=== PATIENT | male | born 1950 | race African-American/Black ===

== ENCOUNTER 2016-03-11 02:50 | Emergency (ER) | payer MEDICARE ==
[~2016-03-11] VITALS: Ht 172.7 cm; Wt 99.8 kg
[2016-03-11 02:56] VITALS: BP 160/107
== END 2016-03-11 05:29 | disposition left against medical advice (07) ==
LOC: ER 03:00
DX: M25.511 Pain in right shoulder (principal); Z53.21 Procedure and treatment not carried out due to patient leaving prior to being seen by health care provider
CPT/HCPCS: 72125; 93005

== ENCOUNTER 2023-05-16 12:27 | Inpatient (IN) | payer MEDICARE ==
[2023-05-16] VITALS (14 sets, daily range): BP systolic 104–119; BP diastolic 62–72; PULSE 80–96; RESP 16–25; TEMP 97.3–98.3; O2SAT 94–100
[~2023-05-16] VITALS: Ht 172.7 cm
[2023-05-16 13:56] LABS: Basophils # (auto) 0 10 ^3/uL (0-0.2); Eosinophils # (auto) 0.1 10 ^3/uL (0-0.8); Mean Corpuscular Volume 62.7 fL (80.0-100.0); Monocytes # (auto) 0.3 10 ^3/uL (0-1.3); Neutrophils # (auto) 2.9 10 ^3/uL (1.6-8.6)
[2023-05-16 13:58] LABS: Basophils % (auto) 0.9 % (0.0-2.0); Eosinophils % (auto) 1.1 % (0.0-7.0); Hematocrit 21.3 % (41.0-53.0); Lymphocytes # (auto) 1.5 10 ^3/uL (0.4-5.4); Lymphocytes % (auto) 31.1 % (10.0-50.0); Mean Corpuscular Hemoglobin 15.5 pg (28.0-32.0); Mean Corpuscular Hgb Conc. 24.7 g/dL (32.0-36.0); Monocytes % (auto) 6.7 % (0.0-12.0); Neutrophils % (auto) 60.2 % (37.0-80.0); Nucleated Red Blood Cells % 0.4 %; White Blood Cell 4.8 10^3/uL (4.4-10.8)
[2023-05-16 14:01] LABS: Red Cell Distribution Width 22.9 % (11.8-14.3)
[2023-05-16 14:03] LABS: Hemoglobin 5.3 g/dL (13.5-17.5)
[2023-05-16 14:04] LABS: Alanine Aminotransferase 15 U/L (7-40); Albumin 4.2 g/dL (3.2-4.8); Alkaline Phosphatase 85 U/L (46-116); Anion Gap 7 (5-15); Aspartate Aminotransferase 23 U/L (13-40); BUN/Creatinine Ratio 19.8 (10.0-20.0); Bilirubin, Direct 0.1 mg/dL (<0.3); Bilirubin, Total 0.3 mg/dL (0.2-1.0); Blood Urea Nitrogen 19 mg/dL (9-23); Calcium 8.9 mg/dL (8.5-10.1); Carbon Dioxide 25 mmol/L (20-30); Chloride 109 mmol/L (98-107); Glucose 87 mg/dL (74-106); Potassium 3.9 mmol/L (3.5-5.1); Sodium 141 mmol/L (136-145); Total Protein 7.2 g/dL (5.7-8.2)
[2023-05-16 14:54] LABS: % Iron Saturation 3.4 % (20-55)
[2023-05-16] MEDS ORDERED: NITROGLYCERIN 0.4 MG SL TAB SL PRN (15:45)
[2023-05-16] MEDS ORDERED: MORPHINE SULFATE INJ 2 MG/ml SYRG IV PRN (15:45)
[2023-05-16] MEDS ORDERED: DOCUSATE SOD 100 MG CAP PO PRN (15:45)
[2023-05-16] MEDS ORDERED: ONDANSETRON HCL 4 MG/2 ML VIAL IV PRN (15:45)
[2023-05-16] MEDS ORDERED: TAMS0.4C36 PO (15:57)
[2023-05-16] MEDS ORDERED: ASPI1TAB19 PO (15:57)
[2023-05-16] MEDS ORDERED: METO-289 PO (15:57)
[2023-05-16] MEDS ORDERED: LOVA20TA4 PO (15:57)
[2023-05-16] MEDS ORDERED: FLUT1AER3 INH (15:57)
[2023-05-16 16:07] LABS: Ovalocytes FEW; Platelet Estimate Increased
[2023-05-16 16:08] LABS: Anisocytosis Moderate; Hypochromia Marked; Tear Drop Cells FEW
[2023-05-16] MEDS: PRAVASTATIN SODIUM 20 MG TAB PO SCH (22:10)
[2023-05-16] MEDS: SODIUM CHLOR 0.9% PF (SALINE LOCK) 10ML VIAL/SYR IV SCH (22:11)
[2023-05-17] VITALS (14 sets, daily range): BP systolic 117–141; BP diastolic 67–92; PULSE 60–104; RESP 14–20; TEMP 97.2–98.4; O2SAT 92–100
[2023-05-17] MEDS: FUROSEMIDE 20 MG/2 ML VIAL IV ONE (00:04)
[2023-05-17] MEDS ORDERED: AMLO1TAB22 PO (00:58)
[2023-05-17 01:27] LABS: Mean Corpuscular Hemoglobin 18.3 pg (28.0-32.0)
[2023-05-17 01:29] LABS: Hematocrit 23.5 % (41.0-53.0); Mean Corpuscular Hgb Conc. 27.5 g/dL (32.0-36.0); Mean Corpuscular Volume 66.5 fL (80.0-100.0); Red Blood Cells 3.54 10^6/uL (4.5-5.90)
[2023-05-17 01:31] LABS: Hemoglobin 6.5 g/dL (13.5-17.5); Red Cell Distribution Width 28.1 % (11.8-14.3)
[2023-05-17 01:33] LABS: Basophils % (manual) 0 (0.0-2.0); Blast Cells 0; Metamyelocytes % 0; Myelocytes % 0; Promyelocytes % 0; Reactive Lymphocytes 0
[2023-05-17 01:41] LABS: Alanine Aminotransferase 11 U/L (7-40); Alkaline Phosphatase 79 U/L (46-116); Anion Gap 5 (5-15); Aspartate Aminotransferase 22 U/L (13-40); BUN/Creatinine Ratio 15.6 (10.0-20.0); Band Neutrophils % (manual) 1; Blood Urea Nitrogen 17 mg/dL (9-23); Calcium 8.7 mg/dL (8.7-10.4); Carbon Dioxide 28 mmol/L (20-30); Chloride 109 mmol/L (98-107); Eosinophils % (manual) 1 (0-7); Glucose 94 mg/dL (74-106); Lymphocytes % (manual) 28 (10.0-50.0); Monocytes % (manual) 7 (0-12); Sodium 142 mmol/L (136-145)
[2023-05-17 01:42] LABS: Anisocytosis Moderate; Bilirubin, Total 0.3 mg/dL (0.2-1.0); Hypochromia Marked; Platelet Estimate Adequate; Target Cell FEW; Total Protein 7.3 g/dL (5.7-8.2)
[2023-05-17 01:43] LABS: Stomatocytes Few
[2023-05-17 01:44] LABS: Ovalocytes FEW
[2023-05-17] MEDS: HYDROcodone-ACET 5/325MG TAB PO PRN (03:23)
[2023-05-17] MEDS: TAMSULOSIN HYDROCHLORIDE 0.4 MG CAP PO SCH (09:18)
[2023-05-17] MEDS: ASPirin-EC 81 mg tab PO SCH (09:18)
[2023-05-17] MEDS: METOPROLOL SUCCINATE XL 50 MG TAB PO SCH (09:20)
[2023-05-17] MEDS ORDERED: PATIENTS OWN MEDICATION (Lovastatin 1 TAB) PO SCH (10:00)
[2023-05-17 13:55] LABS: Basophils # (auto) 0 10 ^3/uL (0-0.2); Eosinophils # (auto) 0.2 10 ^3/uL (0-0.8); Hemoglobin 7.3 g/dL (13.5-17.5); Monocytes # (auto) 0.4 10 ^3/uL (0-1.3); Monocytes % (auto) 7.6 % (0.0-12.0); White Blood Cell 5.4 10^3/uL (4.4-10.8)
[2023-05-17 13:57] LABS: Basophils % (auto) 0.4 % (0.0-2.0); Eosinophils % (auto) 3.5 % (0.0-7.0); Lymphocytes # (auto) 1.2 10 ^3/uL (0.4-5.4); Lymphocytes % (auto) 21.9 % (10.0-50.0); Mean Corpuscular Hemoglobin 18.4 pg (28.0-32.0); Mean Corpuscular Hgb Conc. 26.9 g/dL (32.0-36.0); Mean Corpuscular Volume 68.6 fL (80.0-100.0); Neutrophils # (auto) 3.6 10 ^3/uL (1.6-8.6); Neutrophils % (auto) 66.6 % (37.0-80.0); Nucleated Red Blood Cells % 0.4 %; Red Blood Cells 3.94 10^6/uL (4.5-5.90)
[2023-05-17 14:04] LABS: Red Cell Distribution Width 27.9 % (11.8-14.3)
[2023-05-17 14:30] LABS: Anisocytosis Slight; Hypochromia Marked; Platelet Estimate Adequate
[2023-05-17] MEDS ORDERED: NAP500T PO (15:17)
[2023-05-17] MEDS ORDERED: AMLO2.5C9 PO (15:17)
[2023-05-17] MEDS ORDERED: ALBU108A5 IN (15:19)
[2023-05-17] MEDS: SUCRALFATE 1 GM/10 ML ORAL SUSP PO SCH (16:27)
[2023-05-17] MEDS: PANTOPRAZOLE 40 MG/10 ML VIAL INJ IV SCH (21:22)
[2023-05-18] VITALS (8 sets, daily range): BP systolic 125–150; BP diastolic 56–87; PULSE 71–93; RESP 16–19; TEMP 96.6–98.8; O2SAT 90–96
[2023-05-18 06:21] LABS: Basophils # (auto) 0 10 ^3/uL (0-0.2); Eosinophils # (auto) 0.2 10 ^3/uL (0-0.8); Lymphocytes # (auto) 1.3 10 ^3/uL (0.4-5.4); Monocytes # (auto) 0.4 10 ^3/uL (0-1.3); Monocytes % (auto) 7.6 % (0.0-12.0); Neutrophils # (auto) 3.1 10 ^3/uL (1.6-8.6); Nucleated Red Blood Cells % 0.2 %
[2023-05-18 06:25] LABS: Basophils % (auto) 0.6 % (0.0-2.0); Eosinophils % (auto) 4.7 % (0.0-7.0); Hematocrit 27.2 % (41.0-53.0); Hemoglobin 7.6 g/dL (13.5-17.5); Lymphocytes % (auto) 26.5 % (10.0-50.0); Mean Corpuscular Hemoglobin 19.2 pg (28.0-32.0); Mean Corpuscular Hgb Conc. 27.8 g/dL (32.0-36.0); Neutrophils % (auto) 60.6 % (37.0-80.0); Red Blood Cells 3.95 10^6/uL (4.5-5.90); White Blood Cell 5.1 10^3/uL (4.4-10.8)
[2023-05-18 06:26] LABS: Red Cell Distribution Width 28.5 % (11.8-14.3)
[2023-05-18 07:35] LABS: Ovalocytes FEW; Platelet Estimate Adequate
[2023-05-18 07:36] LABS: Anisocytosis Moderate; Hypochromia Marked
[2023-05-18 11:27] LABS: INR 1.11 (0.9-1.15); Partial Thromboplastin Time 28.6 SEC (24.5-34.5); Prothrombin Time 11.6 sec (9.3-11.8)
[2023-05-19] VITALS (14 sets, daily range): BP systolic 112–146; BP diastolic 69–85; PULSE 64–99; RESP 17–22; TEMP 98.2–98.7; O2SAT 90–100
[2023-05-19 06:14] LABS: Alkaline Phosphatase 76 U/L (46-116); Anion Gap 5 (5-15); BUN/Creatinine Ratio 9.5 (10.0-20.0); Blood Urea Nitrogen 7 mg/dL (9-23); Calcium 8.6 mg/dL (8.7-10.4); Carbon Dioxide 26 mmol/L (20-30); Chloride 108 mmol/L (98-107); Glucose 87 mg/dL (74-106); Potassium 4.4 mmol/L (3.5-5.1); Sodium 139 mmol/L (136-145)
[2023-05-19 06:15] LABS: Albumin 3.6 g/dL (3.2-4.8); Aspartate Aminotransferase 19 U/L (13-40); Eosinophils # (auto) 0.2 10 ^3/uL (0-0.8); Hemoglobin 7.1 g/dL (13.5-17.5); Mean Corpuscular Hemoglobin 18.8 pg (28.0-32.0); Monocytes # (auto) 0.4 10 ^3/uL (0-1.3); White Blood Cell 5.3 10^3/uL (4.4-10.8)
[2023-05-19 06:16] LABS: Bilirubin, Total 0.4 mg/dL (0.2-1.0)
[2023-05-19 06:17] LABS: Basophils # (auto) 0.1 10 ^3/uL (0-0.2); Basophils % (auto) 1.3 % (0.0-2.0); Eosinophils % (auto) 4.5 % (0.0-7.0); Hematocrit 25.7 % (41.0-53.0); Lymphocytes # (auto) 1.5 10 ^3/uL (0.4-5.4); Lymphocytes % (auto) 27.4 % (10.0-50.0); Mean Corpuscular Hgb Conc. 27.5 g/dL (32.0-36.0); Mean Corpuscular Volume 68.3 fL (80.0-100.0); Monocytes % (auto) 7.2 % (0.0-12.0); Neutrophils # (auto) 3.2 10 ^3/uL (1.6-8.6); Neutrophils % (auto) 59.6 % (37.0-80.0); Nucleated Red Blood Cells % 0.2 %; Red Blood Cells 3.77 10^6/uL (4.5-5.90)
[2023-05-19 06:33] LABS: Alanine Aminotransferase < 9 U/L (7-40)
[2023-05-19] MEDS: Fluticasone-Umeclidinium-Vilan (Trelegy Ellipta 100-62.5-25 Mcg/I IN SCH (07:26)
[2023-05-19] MEDS ORDERED: SILD100T57 PO (09:08)
[2023-05-19] MEDS ORDERED: BACL10TA PO (09:08)
[2023-05-19] MEDS ORDERED: NITR0.4S29 SL (09:08)
[2023-05-19 11:23] LABS: Platelet Estimate Adequate; Target Cell FEW
[2023-05-19 11:24] LABS: Anisocytosis Slight; Hypochromia Marked; Ovalocytes FEW
[2023-05-19] MEDS ORDERED: PROPOFOL 10 MG/ML 20 ML IV ONE (11:37)
[2023-05-19] MEDS ORDERED: fentaNYL CITRATE 100 MCG/2 ML VL ONE (11:37)
[2023-05-19] MEDS ORDERED: ONDANSETRON HCL 4 MG/2 ML VIAL IV PRN (11:45)
[2023-05-19] MEDS ORDERED: [UNRECOGNIZED DRUG - OTHER] IV SCH (17:30)
[2023-05-19] MEDS ORDERED: IRON SUCROSE COMPLEX IV SCH (17:30)
[2023-05-19] MEDS: ALBUTEROL SULF 2.5 MG/0.5ML(0.5%) NEB SOLN NEB PRN (18:25)
[2023-05-19] MEDS: IRON SUCROSE COMPLEX 100 ML IV SCH (20:42)
[2023-05-20] VITALS (10 sets, daily range): BP systolic 117–138; BP diastolic 67–89; PULSE 82–94; RESP 18–21; TEMP 97.3–98.3; O2SAT 94–98
[2023-05-20 06:21] LABS: Basophils # (auto) 0 10 ^3/uL (0-0.2); Eosinophils # (auto) 0.2 10 ^3/uL (0-0.8); Lymphocytes % (auto) 19.9 % (10.0-50.0); Monocytes # (auto) 0.4 10 ^3/uL (0-1.3); Nucleated Red Blood Cells % 0.2 %; White Blood Cell 4.9 10^3/uL (4.4-10.8)
[2023-05-20 06:28] LABS: Basophils % (auto) 0.5 % (0.0-2.0); Eosinophils % (auto) 3.4 % (0.0-7.0); Hemoglobin 8.1 g/dL (13.5-17.5); Mean Corpuscular Hemoglobin 19.9 pg (28.0-32.0); Mean Corpuscular Hgb Conc. 27.7 g/dL (32.0-36.0); Mean Corpuscular Volume 71.9 fL (80.0-100.0); Monocytes % (auto) 7.8 % (0.0-12.0); Neutrophils # (auto) 3.3 10 ^3/uL (1.6-8.6); Neutrophils % (auto) 68.4 % (37.0-80.0); Red Blood Cells 4.04 10^6/uL (4.5-5.90)
[2023-05-20 06:38] LABS: Red Cell Distribution Width 29.9 % (11.8-14.3)
[2023-05-20 06:41] LABS: Alanine Aminotransferase 10 U/L (7-40); Alkaline Phosphatase 80 U/L (46-116); Anion Gap 4 (5-15); BUN/Creatinine Ratio 7.7 (10.0-20.0); Blood Urea Nitrogen 6 mg/dL (9-23); Calcium 8.7 mg/dL (8.5-10.1); Carbon Dioxide 29 mmol/L (20-30); Chloride 107 mmol/L (98-107); Glucose 86 mg/dL (74-106); Sodium 140 mmol/L (136-145)
[2023-05-20 06:42] LABS: Albumin 3.7 g/dL (3.2-4.8); Aspartate Aminotransferase 16 U/L (13-40); Bilirubin, Total 0.5 mg/dL (0.2-1.0)
[2023-05-20 06:43] LABS: Total Protein 6.7 g/dL (5.7-8.2)
[2023-05-20 08:17] LABS: Anisocytosis Marked; Hypochromia Marked; Platelet Estimate Adequate
[2023-05-20 11:47] LABS: Hepatitis A Total Antibody Positive (Negative)
[2023-05-20 11:51] LABS: Hepatitis B Surface Antibody Negative (Negative); Hepatitis B Surface Antigen Negative (Negative)
[2023-05-20 11:53] LABS: Hepatitis B Core Total AB Positive (Negative); Hepatitis C Antibody Positive (Negative)
[2023-05-20] MEDS: TAMSULOSIN HYDROCHLORIDE 0.4 MG CAP PO SCH (17:33)
[2023-05-20] MEDS: ACETAMINOPHEN 325 MG TAB PO PRN (20:20)
[2023-05-21] VITALS (13 sets, daily range): BP systolic 137–159; BP diastolic 58–85; PULSE 76–92; RESP 16–20; TEMP 97.4–98.4; O2SAT 91–100
[2023-05-21 07:00] LABS: Alanine Aminotransferase 11 U/L (7-40); Albumin 3.9 g/dL (3.2-4.8); Alkaline Phosphatase 90 U/L (46-116); Anion Gap 3 (5-15); Aspartate Aminotransferase 19 U/L (13-40); Bilirubin, Total 0.4 mg/dL (0.2-1.0); Calcium 9.2 mg/dL (8.5-10.1); Carbon Dioxide 33 mmol/L (20-30); Chloride 105 mmol/L (98-107); Glucose 75 mg/dL (74-106); Potassium 3.9 mmol/L (3.5-5.1); Sodium 141 mmol/L (136-145); Total Protein 7.1 g/dL (5.7-8.2)
[2023-05-21 07:15] LABS: BUN/Creatinine Ratio 6.2 (10.0-20.0); Blood Urea Nitrogen < 5 mg/dL (9-23)
[2023-05-21 07:21] LABS: Basophils # (auto) 0 10 ^3/uL (0-0.2); Basophils % (auto) 0.4 % (0.0-2.0); Eosinophils # (auto) 0.2 10 ^3/uL (0-0.8); Hemoglobin 8.7 g/dL (13.5-17.5); Lymphocytes # (auto) 1.1 10 ^3/uL (0.4-5.4); Monocytes # (auto) 0.4 10 ^3/uL (0-1.3); Neutrophils # (auto) 2.7 10 ^3/uL (1.6-8.6)
[2023-05-21 07:25] LABS: Eosinophils % (auto) 4.9 % (0.0-7.0); Hematocrit 30.2 % (41.0-53.0); Lymphocytes % (auto) 24.6 % (10.0-50.0); Mean Corpuscular Hemoglobin 20.2 pg (28.0-32.0); Mean Corpuscular Hgb Conc. 28.8 g/dL (32.0-36.0); Mean Corpuscular Volume 70.1 fL (80.0-100.0); Monocytes % (auto) 8.7 % (0.0-12.0); Neutrophils % (auto) 61.4 % (37.0-80.0); Nucleated Red Blood Cells % 0.4 %; Red Blood Cells 4.31 10^6/uL (4.5-5.90); White Blood Cell 4.4 10^3/uL (4.4-10.8)
[2023-05-21 07:27] LABS: Red Cell Distribution Width 30.1 % (11.8-14.3)
[2023-05-21] MEDS ORDERED: GOLYTELY 4L KIT PO ONE (07:45)
[2023-05-21 08:28] LABS: Anisocytosis Moderate; Platelet Estimate Adequate
[2023-05-21 08:30] LABS: Hypochromia Marked
[2023-05-21 08:31] LABS: Ovalocytes FEW
[2023-05-21] MEDS: GOLYTELY 4L KIT PO ONE (08:51)
[2023-05-21] MEDS: amLODIPine BESYLATE 5 MG TAB PO SCH (11:16)
[2023-05-22] VITALS (11 sets, daily range): BP systolic 118–149; BP diastolic 63–90; PULSE 84–101; RESP 17–19; TEMP 98.1–98.4; O2SAT 92–100
[2023-05-22] MEDS: MAGNESIUM CITRATE SOLUTION 300 ML BTL PO ONE (06:00)
[2023-05-22] MEDS: GOLYTELY 4L KIT PO ONE (06:00)
[2023-05-22 06:14] LABS: Basophils # (auto) 0 10 ^3/uL (0-0.2); Basophils % (auto) 0.7 % (0.0-2.0); Hematocrit 31.7 % (41.0-53.0); Hemoglobin 9.1 g/dL (13.5-17.5); Lymphocytes # (auto) 1.2 10 ^3/uL (0.4-5.4); Monocytes # (auto) 0.5 10 ^3/uL (0-1.3); Monocytes % (auto) 9.4 % (0.0-12.0); Neutrophils # (auto) 3.2 10 ^3/uL (1.6-8.6)
[2023-05-22 06:17] LABS: Eosinophils # (auto) 0.2 10 ^3/uL (0-0.8); Eosinophils % (auto) 3.5 % (0.0-7.0); Lymphocytes % (auto) 24.3 % (10.0-50.0); Mean Corpuscular Hemoglobin 20.2 pg (28.0-32.0); Mean Corpuscular Hgb Conc. 28.7 g/dL (32.0-36.0); Mean Corpuscular Volume 70.4 fL (80.0-100.0); Neutrophils % (auto) 62.1 % (37.0-80.0); Nucleated Red Blood Cells % 0.9 %; White Blood Cell 5.1 10^3/uL (4.4-10.8)
[2023-05-22 06:21] LABS: Red Cell Distribution Width 31.2 % (11.8-14.3)
[2023-05-22 06:27] LABS: Alanine Aminotransferase 16 U/L (7-40); Albumin 4.1 g/dL (3.2-4.8); Alkaline Phosphatase 96 U/L (46-116); Anion Gap 5 (5-15); Calcium 9.4 mg/dL (8.5-10.1); Carbon Dioxide 33 mmol/L (20-30); Chloride 102 mmol/L (98-107); Glucose 68 mg/dL (74-106); Potassium 3.5 mmol/L (3.5-5.1); Sodium 140 mmol/L (136-145)
[2023-05-22 06:28] LABS: Aspartate Aminotransferase 19 U/L (13-40); Bilirubin, Total 0.4 mg/dL (0.2-1.0); Total Protein 7.9 g/dL (5.7-8.2)
[2023-05-22 06:38] LABS: BUN/Creatinine Ratio 6.7 (10.0-20.0); Blood Urea Nitrogen < 5 mg/dL (9-23)
[2023-05-22 06:50] LABS: Hypochromia Marked
[2023-05-22 06:51] LABS: Anisocytosis Marked; Large Platelets FEW; Ovalocytes FEW; Platelet Estimate Adequate; Target Cell FEW
[2023-05-22] MEDS ORDERED: LIDOCAINE 1% INJ PF 5ML AMP ONE (10:28)
[2023-05-22] MEDS ORDERED: PROPOFOL 10 MG/ML 20 ML IV ONE ×2 (10:28→11:58)
[2023-05-23] VITALS (8 sets, daily range): BP systolic 125–149; BP diastolic 73–86; PULSE 85–101; RESP 14–95; TEMP 97.4–98.1; O2SAT 91–97
[2023-05-23] MEDS ORDERED: PANT40T PO (11:11)
[2023-05-23] MEDS ORDERED: FERR-7 PO (11:25)
[2023-05-23] MEDS ORDERED: SUCR1TAB22 OR (11:25)
== END 2023-05-23 13:10 | disposition home or self-care (01) | DRG 811 ==
LOC: ER 12:27 → TELE 15:49 → TELE-WESTW 18:40
PROVIDERS: ADMIT Nurse Practitioner Family; ATTEND Family Medicine
PROC: 30233N1 Transfusion of Nonautologous Red Blood Cells into Peripheral Vein, Percutaneous Approach (ICD-10-PCS; principal; 2023-05-16)
PROC: 5A09357 Assistance with Respiratory Ventilation, Less than 24 Consecutive Hours, Continuous Positive Airway Pressure (ICD-10-PCS; 2023-05-16)
PROC: 0DB78ZX Excision of Stomach, Pylorus, Via Natural or Artificial Opening Endoscopic, Diagnostic (ICD-10-PCS; 2023-05-19)
PROC: 5A09357 Assistance with Respiratory Ventilation, Less than 24 Consecutive Hours, Continuous Positive Airway Pressure (ICD-10-PCS; 2023-05-21)
PROC: 0DBH8ZZ Excision of Cecum, Via Natural or Artificial Opening Endoscopic (ICD-10-PCS; 2023-05-22)
DX: D50.9 Iron deficiency anemia, unspecified (principal); J96.01 Acute respiratory failure with hypoxia; I27.0 Primary pulmonary hypertension; K29.70 Gastritis, unspecified, without bleeding; D75.839 Thrombocytosis, unspecified; N40.0 Benign prostatic hyperplasia without lower urinary tract symptoms; D75.838 Other thrombocytosis; G47.33 Obstructive sleep apnea (adult) (pediatric); E78.00 Pure hypercholesterolemia, unspecified; E66.9 Obesity, unspecified; J44.89 Other specified chronic obstructive pulmonary disease; K43.9 Ventral hernia without obstruction or gangrene; K63.5 Polyp of colon; K64.8 Other hemorrhoids; K44.9 Diaphragmatic hernia without obstruction or gangrene; Z82.49 Family history of ischemic heart disease and other diseases of the circulatory system; Z80.9 Family history of malignant neoplasm, unspecified; Z86.19 Personal history of other infectious and parasitic diseases; Z68.32 Body mass index [BMI] 32.0-32.9, adult
CPT/HCPCS: 36415; 36430; 71045; 80048; 80053; 80076; 82270; 82728; 82962; 83540; 83550; 83615; 84484; 85007; 85025; 85027; 85045; 85610; 85730; 86704; 86706; 86708; 86803; 86850; 86900; 86901; 86920; 87340; 94640; 94660; C9113; G0378; J1756; J2704

== ENCOUNTER 2025-01-17 19:27 | Inpatient (IN) | payer MEDICARE, OTHER ==
[~2025-01-17] VITALS: Ht 172.7 cm; Wt 95.0 kg
[~2025-01-17 19:27] MED LIST: ALBU108A5 IN; AMLO2.5C9 PO; ASPI1TAB19 PO; BACL10TA PO; FERR-7 PO; FLUT1AER3 INH; LOVA20TA4 PO; METO-289 PO; NAP500T PO; NITR0.4S29 SL; PANT40T PO; SILD100T PO; SUCR1TAB31 OR; TAMS0.4C39 PO
--- NOTE | 2025-01-17 20:29 | ED.PDOC ---
History of Present Illness HPI Comments 74-year-old male who came to ER for shortness of breath. Patient has a history of hypertension, anemia, congestive heart failure, on home oxygen at 2 L/min. For the past 2 weeks patient has been from shortness of breath progressively worsening. Patient states he had a similar episode before, and noticed that he has hemoglobin levels were low, and blood transfusion was done. Patient having similar sensation today. Was saturating 84% on 2 L/min. He also complaining of burning substernal chest pain REVIEW OF SYSTEMS: General: No fever, no chills, or fatigue HEENT: No sore throat, no earache, no congestion, no neck pain. Cardiac: (+) chest pain. No palpitations. Lungs: (+) shortness of breath, no cough. GI: No nausea, no vomiting, no diarrhea, no constipation, no abdominal pain : No dysuria, frequency, or urgency. No hematuria. Musculoskeletal: No joint pain , no joint swelling, no extremity edema. Skin: No rash, no itching. Neuro: No headache, no dizziness, no weakness EXAM: General: Awake, alert and oriented. No acute distress. Skin: Skin in warm, dry and intact. Appropriate color for ethnicity. HEENT: The head is normocephalic and atraumatic. Conjunctivae are clear without exudates or hemorrhage. Sclera is non-icteric. EOM are intact. No signs of nystagmus. Eyelids are normal in appearance without swelling or lesions. Oral mucosa is pink and moist. Nasal cannula in place. Neck: The neck is supple with normal range of motion. No JVD. Cardiac: Heart rate and rhythm are normal. No murmurs, gallops, or rubs are auscultated. Respiratory: No signs of respiratory distress. Bilateral rales at the bases Abdominal: Abdomen is soft, non-tender without distention. Bowel sounds are present and normoactive in all four quadrants. Extremities: Upper and lower extremities are atraumatic in appearance without deformity or edema. Neurological: The patient is awake, alert and oriented to person, place, and time with normal speech. Speech is clear. There is no facial asymmetry. Psychiatric: Appropriate mood and affect. Good judgement and insight Chief Complaint: Shortness of Breath Time Seen by MD: 20:27 Reviewed Notes: Nurses Notes Allergies: Coded Allergies: NO KNOWN ALLERGIES (Unverified , 1/8/17) Home Meds Active Scripts Ferrous Sulfate (Iron) 325 Mg Tab, 325 MG PO BID, #180 TAB Prov:SHANON PARMAR MD 05/23/23 Sucralfate (CARAFATE) 1 Gm Tab, 1 GM OR QID, #120 TAB Prov:SHANON PARMAR MD 05/23/23 Pantoprazole Sodium Sesquihydr (Pantoprazole Sodium) 40 Mg Tab, 40 MG PO BID, #60 TAB Prov:SHANON PARMAR MD 05/23/23 Reported Medications Nitroglycerin (NTROSTAT SUBLINGUAL) 0.4 Mg Sl, 0.4 MG SL PRN, TAB *MAY REPEAT EVERY 5 MINUTES X 3 TOTAL IF NO RELIEF, INITIATE ANALGESIC THERAPY. NOTIFY PHYSICIAN *Do not crush. 05/19/23 Sildenafil Citrate (Viagra) 100 Mg Tab, 1 TAB PO DAILYP, #6 TAB 11 Refills 05/19/23 Baclofen (Baclofen) 10 Mg Tab, 10 MG PO BIDPRN PRN for FOR MUSCLE SPASM for 30 Days, MG 05/19/23 Albuterol Sulfate (Albuterol Sulfate Hfa) 108 Mcg/Act Aer, 2 PUFF IN Q4HP PRN for SHORTNESS OF BREATH, AER 05/17/23 Naproxen (NAPROSYN TABLET) 500 Mg Tb, 1 TAB PO BID PRN for MILD PAIN (1-3 PAIN SCALE) 05/17/23 Amlodipine Besylate-Benazepril (Amlodipine Besylate/Benaz) 1 Cap Cap, 1 CAP PO DAILY, CAP 05/17/23 Metoprolol Succinate (Metoprolol Succinate Er) 50 Mg Tab, 1 TAB PO DAILY, #30 TAB 5 Refills 05/16/23 Aspirin (Aspirin) 81 Mg Tab, 81 MG PO DAILY, TAB 05/16/23 Lovastatin (Lovastatin) 20 Mg Tab, 1 TAB PO DAILY 05/16/23 Gvgadrnpwey-Lijxljetwzar-Hrmec (Trelegy Ellipta 100-62.5-25 Mcg/INH) 1 Aer Aer, 1 PUFF INH DAILY 05/16/23 Tamsulosin Hcl (Tamsulosin Hcl) 0.4 Mg Cap, 1 CAP PO DAILY 05/16/23 Information Source: Patient Mode of Arrival: Wheelchair Past Medical History PAST MEDICAL HISTORY: Anemia, CHF, HTN Past Medical History (Other): Pulmonary hypertension, prostate enlargement Surgical History (Other): Blood Transfusion Family History Family History: Unknown Social History Smoker: Non-Smoker Alcohol: Denies ETOH Use Drugs: Denies Drug Use Lives In: Home Differential Dx Considerations may include: Differential diagnoses considered includebut arenot limited to acute Bronchitis, Asthma, COPD, Pneumothorax, PE, CHF, Pulmonary HTN, Anemia, CO Poisoning, Methemoglobinemia, Hyperventilation, Metabolic Acidosis, Pulmonary Edema, Pneumonia, ACS, Pericardial Tamponade, Anxiety, other X-Ray, Labs, Meds, VS Vital Signs Date Time Temp Pulse Resp B/P (MAP) Pulse Ox O2 Delivery O2 Flow Rate FiO2 01/17/25 23:48 98.4 111 20 158/93 (114) 96 98.4 01/17/25 21:31 98.5 100 20 148/106 (120) 100 98.5 01/17/25 19:48 95 01/17/25 19:34 98.6 99 22 156/123 94 98.6 Lab Test 01/17/25 22:09 01/17/25 22:00 Range/Units White Blood Count 5.8 4.4-10.8 10^3/uL Red Blood Count 4.20 L 4.5-5.90 10^6/uL Hemoglobin 8.4 L 13.5-17.5 g/dL Hematocrit 30.0 L 41.0-53.0 % Mean Corpuscular Volume 71.4 L 80.0-100.0 fL Mean Corpuscular Hemoglobin 20.1 L 28.0-32.0 pg Mean Corpuscular Hemoglobin Concent 28.1 L 32.0-36.0 g/dL Red Cell Distribution Width 23.2 H 11.8-14.3 % Platelet Count 271 140-450 10^3/uL Mean Platelet Volume 9.3 6.9-10.8 fL Neutrophils (%) (Auto) 37.0-80.0 % Lymphocytes (%) (Auto) 10.0-50.0 % Monocytes (%) (Auto) 0.0-12.0 % Basophils (%) (Auto) 0.0-2.0 % Neutrophils # (Auto) 1.6-8.6 10 ^3/uL Lymphocytes # (Auto) 0.4-5.4 10 ^3/uL Monocytes # (Auto) 0-1.3 10 ^3/uL Differential Total Cells Counted 100.0 100 Neutrophils % (Manual) 69 37.0-80.0 Band Neutrophils % (Manual) 1 Lymphocytes % (Manual) 22 10.0-50.0 Monocytes % (Manual) 6 0-12 Eosinophils % (Manual) 1 0-7 Basophils % (Manual) 0 0.0-2.0 Metamyelocytes % (manual) 0 Myelocytes % (Manual) 1 Promyelocytes % (Manual) 0 Blast Cells % (Manual) 0 Reactive Lymphocytes 0 Platelet Estimate Adequate Large Platelets Few Hypochromasia (manual) Marked Anisocytosis (manual) Moderate Microcytosis Moderate Target Cells Few Ovalocytes Few Schistocytes Few Sodium Level 144 136-145 mmol/L Potassium Level 3.8 3.5-5.1 mmol/L Chloride Level 107 98-107 mmol/L Carbon Dioxide Level 30 20-31 mmol/L Anion Gap 7 5-15 Blood Urea Nitrogen 9 9-23 mg/dL Creatinine 0.73 0.700-1.30 mg/dL Glomerular Filtration Rate Calc 96 >90 mL/min BUN/Creatinine Ratio 12.3 10.0-20.0 Serum Glucose 106 74-106 mg/dL Calcium Level 8.7 8.7-10.4 mg/dL Troponin I High Sensitivity 6 </=54 ng/L B-Type Natriuretic Peptide 434.90 0-100 pg/mL Blood Gas Specimen Type Arterial Blood Gas Sample Site Left radial Blood Gas Patient Temperature 37.0 Arterial Blood Date Drawn [id number] Arterial Blood pH 7.303 L 7.350-7.450 Arterial Blood Partial Pressure CO2 51.6 H 35.0-48.0 mmHg Arterial Blood Partial Pressure O2 156.6 H 83.0-108.0 mmHg Arterial Blood HCO3 25.0 21.0-28.0 mmol/L Arterial Blood Oxygen Saturation 99.4 H 94.0-98.0 % Arterial Blood Base Excess -1.6 -2.0-3.0 mmol/L Arterial Blood Oxyhemoglobin 96.9 94.0-98.0 % Arterial Blood Carboxyhemoglobin 1.9 H 0.5-1.5 % Arterial Blood Methemoglobin 0.6 0.0-1.5 % Jose Luis Test Yes Blood Gas Total Hemoglobin 9.30 L 13.5-17.5 g/dL Blood Gas Liter Flow 4.00 Blood Gas Modality Nasal cannula FiO2 % 36.0 [facility] [id number] [facility] [id number] Ph: [phone] DIAGNOSTIC IMAGING Diagnostic Imaging Report : [id number] Signed PATIENT: KATHRYN AVERY ACCT: [id number] UNIT: [id number] : 1950 LOC: ER ROOM / BED: / AGE / SEX: 74 / M ADM STATUS: REG ER SERVICE 42 ORDERING PHYSICIAN: KATHLEEN CABA MD PROCEDURE(s): CXR1 - CHEST XRAY 1 VIEW REASON: cp ORDER NUMBER(s): [id number], ACCESSION NUMBER(s): [id number] CHEST RADIOGRAPH Indication: cp Technique: 1 view Comparison: XY CHEST PORTABLE on DOS: 05/16/23 FINDINGS: Lines and Tubes: None. Lungs/Pleura: Bilateral perihilar and basilar interstitial enlargement with patchy basilar airspace opacities. No appreciable pleural effusion pneumothorax. Cardiomediastinum: Unchanged, upper normal heart size. Other: No acute osseous abnormality. IMPRESSION: 1. Interstitial opacities suggesting cardiogenic edema or atypical infection. 2. Mild basilar airspace opacities more likely to represent atelectasis or alveolar edema than superimposed pneumonia. ATED BY: ESTELLA BELLAMY MD DICTATED DATE/TIME: 01/17/252236 SIGNED BY: ESTELLA BELLAMY MD SIGNED DATE/TIME: 01/17/252236 CC: Time of 1ST Reevaluation: 20:23 Reevaluation 1ST: Unchanged Patient Education/Counseling: Need For Follow Up Family Education/Counseling: No Family Present SEPSIS Sepsis Screen Date sepsis recognized/suspect: Jan 17, 2025 Time Sepsis recognized/suspect: 1939 Recent Procedure: No On Antibiotic Therapy: No Respiratory Rate >20: Yes Heart Rate >90: Yes Temp<36 C (96.8 F) or >38.3 C: No SBP <90 or MAP <65 mmHG: No New Acute Mental Status Change: No Is the patient on CPAP, BIPAP,: No Physician Orders Electrocardigram (01/17/25 21:43) Chest Xray 1 View (01/17/25 21:43) Vital Signs Q1HR (01/17/25 21:43) Saline Lock (01/17/25 21:43) Associate (01/17/25 ) Abg W/ Co-Ox (01/17/25 21:44) Vital Signs Date Time Temp Pulse Resp B/P (MAP) Pulse Ox O2 Delivery O2 Flow Rate FiO2 01/17/25 23:48 98.4 111 20 158/93 (114) 96 98.4 01/17/25 21:31 98.5 100 20 148/106 (120) 100 98.5 01/17/25 19:48 95 01/17/25 19:34 98.6 99 22 156/123 94 98.6 Laboratory Tests Test 01/17/25 22:09 White Blood Count 5.8 10^3/uL (4.4-10.8) Departure 1 Departure Time of Disposition: 23:06 Impression: Primary Impression: CHF exacerbation Additional Impressions: Severe anemia Hypoxia Disposition: ADMITTED INPATIENT Condition: Stable Comments MDM: Lasix administered in the ED Patient higher O2 requirement Patient admitted to hospitalist service for further treatment, evaluation and monitoring. Extensive evaluation was performed in attempt to identify or rule out: (See differential diagnosis section) The following tests were ordered, and results were reviewed by me and discussed with patient: (See diagnostic results section) The following test were independently interpreted by me: EKG-no STEMI. Sinus rhythm. Chest [id number] pulmonary edema I reviewed and agreed with the following test results read by other providers: Chest x-ray I reviewed the following notes from the pt's past medical encounters: Encounter for severe anemia May 2023 Additional information was gathered from interviewing the following independent historians: Patient's at bedside Discussion of management or test interpretation with external physician/other qualified health direct care staffer: N/A Addressed an acute or chronic illness that poses a threat to life or bodily function: CHF exacerbation, hypoxia Decision regarding hospitalization or escalation of hospital level of care: Risk and benefits of admission for further treatment of patient's condition was considered. Due to patient's current clinical condition, high risk of decline and poor outcome if discharged and need for further inpatient management and monitoring, patient will be admitted to the hospital. Drug therapy requiring intensive monitoring for toxicity: IV Lasix Critical Care Note Critical Care Time?: Yes (35 min-critical care time only) Stability Stability form required: No Heart Score Heart Score: Heart Score Response (Comments) Value History Moderate Suspicious 1 EKG Normal 0 Age >65 2 Risk Factors >3 or Hx ASHD 2 Troponin Normal limit 0 Total 5 I personally scribed for KATHLEEN CABA MD ([email or web address]) on 01/17/25 at 20:29. Electronically submitted by Nelson Morrow ([employer]). I personally scribed for KATHLEEN CABA MD ([email or web address]) on 01/17/25 at 22:42. Electronically submitted by Nelson Morrow ([employer]). KATHLEEN CABA MD Jan 17, 2025 20:29
[2025-01-17 22:10] LABS: Base Excess -1.6 mmol/L (-2.0-3.0)
[2025-01-17 22:28] LABS: Chloride 107 mmol/L (98-107); Potassium 3.8 mmol/L (3.5-5.1); Sodium 144 mmol/L (136-145)
[2025-01-17 22:29] LABS: Anion Gap 7 (5-15); Carbon Dioxide 30 mmol/L (20-31)
[2025-01-17 22:34] LABS: BUN/Creatinine Ratio 12.3 (10.0-20.0); Calcium 8.7 mg/dL (8.7-10.4)
--- NOTE | 2025-01-17 22:39 | DVH ---
CHEST RADIOGRAPH Indication: cp Technique: 1 view Comparison: XY CHEST PORTABLE on DOS: 05/16/23 FINDINGS: Lines and Tubes: None. Lungs/Pleura: Bilateral perihilar and basilar interstitial enlargement with patchy basilar airspace opacities. No appreciable pleural effusion pneumothorax. Cardiomediastinum: Unchanged, upper normal heart size. Other: No acute osseous abnormality. IMPRESSION: 1. Interstitial opacities suggesting cardiogenic edema or atypical infection. 2. Mild basilar airspace opacities more likely to represent atelectasis or alveolar edema than superimposed pneumonia.
[2025-01-17 22:40] LABS: Blood Urea Nitrogen 9 mg/dL (9-23); Glucose 106 mg/dL (74-106)
[2025-01-17 22:46] LABS: Hematocrit 30.0 % (41.0-53.0); Hemoglobin 8.4 g/dL (13.5-17.5); Mean Corpuscular Hemoglobin 20.1 pg (28.0-32.0); Mean Corpuscular Volume 71.4 fL (80.0-100.0)
[2025-01-17 23:35] LABS: Anisocytosis Moderate; Total Cells Counted 100.0 (100)
[2025-01-17 23:36] LABS: Ovalocytes FEW
[2025-01-18] VITALS (12 sets, daily range): BP systolic 106–158; BP diastolic 41–93; PULSE 65–111; RESP 16–22; TEMP 97.8–98.7; O2SAT 94–100
[2025-01-18] MEDS ORDERED: NITROGLYCERIN 0.4 MG SL TAB SL PRN
[2025-01-18] MEDS ORDERED: MORPHINE SULFATE INJ 2 MG/ml SYRG IV PRN
[2025-01-18] MEDS ORDERED: ONDANSETRON HCL 4 MG/2 ML VIAL IV PRN (00:15)
--- NOTE | 2025-01-18 01:24 | DVHHP2 ---
History of Present Illness Reason for Visit: Shortness for breath History of Present Illness 74-year-old male presents for evaluation of shortness for breath. The patient reports a two week history of worsening shortness for breath. He reports currently using 2 L of nasal cannula oxygen. He also reports generalized weakness and fatigue. No chest pain. No other acute complaints reported. Past Medical History COPD, CHF, hypertension, anemia, pulmonary hypertension, BPH Past Surgical History Denies Family History Noncontributory Smoke: No ALCOHOL: none Drugs: None Lives: with Family Review of Systems Review of Systems Review of systems are currently negative otherwise addressed in HPI. Allergies: Coded Allergies: NO KNOWN ALLERGIES (Unverified , 03/11/16) Medications Current Medications Medications Dose Ordered Sig/Reji Route Start Time Stop Time Status Last Admin Dose Admin Nitroglycerin 0.4 mg Q5MINP PRN SL 01/18/25 00:00 Morphine Sulfate 2 mg Q30M PRN IV 01/18/25 00:00 Furosemide 20 mg DAILY IV 01/18/25 10:00 Aspirin 81 mg DAILY PO 01/18/25 10:00 Albuterol 2.5 mg Q6HPRN PRN NEB 01/18/25 00:15 Metoprolol Succinate 50 mg DAILY PO 01/18/25 10:00 Amlodipine Besylate 5 mg DAILY PO 01/18/25 10:00 Ferrous Sulfate 325 mg BIDWM PO 01/18/25 08:00 Atorvastatin Calcium 20 mg HS PO 01/18/25 22:00 Pantoprazole Sodium 40 mg DAILY@0600 PO 01/18/25 06:00 Sildenafil Citrate 20 mg TID@08,14,20 PO 01/18/25 08:00 UNV Tamsulosin HCl 0.4 mg QPM PO 01/18/25 18:00 Azithromycin 250 ml @ 125 mls/hr DAILY IV 01/18/25 10:00 UNV Ondansetron HCl 4 mg Q4HP PRN IV 01/18/25 00:15 Acetaminophen 650 mg Q6HP PRN PO 01/18/25 00:15 Exam Vital Signs Vital Signs Date Time Temp Pulse Resp B/P (MAP) Pulse Ox O2 Delivery O2 Flow Rate FiO2 01/18/25 01:16 98.4 111 18 158/93 96 4.0 98.4 Exam Gen: 74-year-old male in mild distress Skin: Warm, dry, normal color and texture, no rash. HEENT: Normocephalic atraumatic, mucous membranes moist and pink. Neck: Cervical and supraclavicular nodes normal without enlargement, trachea is midline, thyroid gland is normal without masses. Pulmonary: Clear to auscultation and percussion bilaterally. Cardiac: Regular rate and rhythm. No murmur Abdomen: Soft, nontender, nondistended, bowel sounds present all 4 quadrants, no guarding, no rigidity, no organomegaly. Extremities: No cyanosis, clubbing, no edema Neuro: Cranial nerves II through XII grossly intact, normal affect and speech, no focal motor deficits. Labs/Xrays ORDERING PHYSICIAN: KATHLEEN CABA MD PROCEDURE(s): CXR1 - CHEST XRAY 1 VIEW REASON: cp ORDER NUMBER(s): [id number], ACCESSION NUMBER(s): [id number] CHEST RADIOGRAPH Indication: cp Technique: 1 view Comparison: XY CHEST PORTABLE on DOS: 05/16/23 FINDINGS: Lines and Tubes: None. Lungs/Pleura: Bilateral perihilar and basilar interstitial enlargement with patchy basilar airspace opacities. No appreciable pleural effusion pneumothorax. Cardiomediastinum: Unchanged, upper normal heart size. Other: No acute osseous abnormality. IMPRESSION: 1. Interstitial opacities suggesting cardiogenic edema or atypical infection. 2. Mild basilar airspace opacities more likely to represent atelectasis or alveolar edema than superimposed pneumonia. Labs Test 01/17/25 22:09 01/17/25 22:00 Range/Units White Blood Count 5.8 4.4-10.8 10^3/uL Red Blood Count 4.20 L 4.5-5.90 10^6/uL Hemoglobin 8.4 L 13.5-17.5 g/dL Hematocrit 30.0 L 41.0-53.0 % Mean Corpuscular Volume 71.4 L 80.0-100.0 fL Mean Corpuscular Hemoglobin 20.1 L 28.0-32.0 pg Mean Corpuscular Hemoglobin Concent 28.1 L 32.0-36.0 g/dL Red Cell Distribution Width 23.2 H 11.8-14.3 % Platelet Count 271 140-450 10^3/uL Mean Platelet Volume 9.3 6.9-10.8 fL Neutrophils (%) (Auto) 37.0-80.0 % Lymphocytes (%) (Auto) 10.0-50.0 % Monocytes (%) (Auto) 0.0-12.0 % Basophils (%) (Auto) 0.0-2.0 % Neutrophils # (Auto) 1.6-8.6 10 ^3/uL Lymphocytes # (Auto) 0.4-5.4 10 ^3/uL Monocytes # (Auto) 0-1.3 10 ^3/uL Differential Total Cells Counted 100.0 100 Neutrophils % (Manual) 69 37.0-80.0 Band Neutrophils % (Manual) 1 Lymphocytes % (Manual) 22 10.0-50.0 Monocytes % (Manual) 6 0-12 Eosinophils % (Manual) 1 0-7 Basophils % (Manual) 0 0.0-2.0 Metamyelocytes % (manual) 0 Myelocytes % (Manual) 1 Promyelocytes % (Manual) 0 Blast Cells % (Manual) 0 Reactive Lymphocytes 0 Platelet Estimate Adequate Large Platelets Few Hypochromasia (manual) Marked Anisocytosis (manual) Moderate Microcytosis Moderate Target Cells Few Ovalocytes Few Schistocytes Few Sodium Level 144 136-145 mmol/L Potassium Level 3.8 3.5-5.1 mmol/L Chloride Level 107 98-107 mmol/L Carbon Dioxide Level 30 20-31 mmol/L Anion Gap 7 5-15 Blood Urea Nitrogen 9 9-23 mg/dL Creatinine 0.73 0.700-1.30 mg/dL Glomerular Filtration Rate Calc 96 >90 mL/min BUN/Creatinine Ratio 12.3 10.0-20.0 Serum Glucose 106 74-106 mg/dL Calcium Level 8.7 8.7-10.4 mg/dL Troponin I High Sensitivity 6 </=54 ng/L B-Type Natriuretic Peptide 434.90 0-100 pg/mL Blood Gas Specimen Type Arterial Blood Gas Sample Site Left radial Blood Gas Patient Temperature 37.0 Arterial Blood Date Drawn [id number] Arterial Blood pH 7.303 L 7.350-7.450 Arterial Blood Partial Pressure CO2 51.6 H 35.0-48.0 mmHg Arterial Blood Partial Pressure O2 156.6 H 83.0-108.0 mmHg Arterial Blood HCO3 25.0 21.0-28.0 mmol/L Arterial Blood Oxygen Saturation 99.4 H 94.0-98.0 % Arterial Blood Base Excess -1.6 -2.0-3.0 mmol/L Arterial Blood Oxyhemoglobin 96.9 94.0-98.0 % Arterial Blood Carboxyhemoglobin 1.9 H 0.5-1.5 % Arterial Blood Methemoglobin 0.6 0.0-1.5 % Jose Luis Test Yes Blood Gas Total Hemoglobin 9.30 L 13.5-17.5 g/dL Blood Gas Liter Flow 4.00 Blood Gas Modality Nasal cannula FiO2 % 36.0 SEPSIS Sepsis Screen Date sepsis recognized/suspect: Jan 17, 2025 Time Sepsis recognized/suspect: 1939 Recent Procedure: No On Antibiotic Therapy: No Respiratory Rate >20: Yes Heart Rate >90: Yes Temp<36 C (96.8 F) or >38.3 C: No SBP <90 or MAP <65 mmHG: No New Acute Mental Status Change: No Is the patient on CPAP, BIPAP,: No Physician Orders Electrocardigram (01/17/25 21:43) Chest Xray 1 View (01/17/25 21:43) Vital Signs Q1HR (01/17/25 21:43) Saline Lock (01/17/25 21:43) Flight Service Specialist (01/17/25 ) Abg W/ Co-Ox (01/17/25 21:44) Admit (01/17/25 23:55) Nitroglycerin Sublingual (Ntrostat Subli (01/18/25 00:00) Morphine Sulfate Injection (01/18/25 00:00) Stat Ekg For Chest Pain (01/17/25 23:55) Notify Md Of Changes From Base (01/17/25 23:55) Ocean Freight Manager For 24 Hours (01/17/25 23:55) Emergency Dysrhythmia Protocol (01/17/25 23:55) Rhythm Strips Once Every Shift (01/17/25 23:55) Oxygen By Nasal Cannula (01/17/25 23:55) Furosemide Injection (Lasix Injection) (01/18/25 10:00) Aspirin Tablet (01/18/25 10:00) Albuterol Medneb (Ventolin Medneb) (01/18/25 00:15) Metoprolol Xl Succinate (Toprol Xl) (01/18/25 10:00) Amlodipine Tablet (Norvasc Tablet) (01/18/25 10:00) Ferrous Sulfate Tablet (01/18/25 08:00) Atorvastatin (Lipitor) (01/18/25 22:00) Pantoprazole Tablet (Protonix Tablet) (01/18/25 06:00) Sildenafil Citrate (Revatio) (01/18/25 08:00) Tamsulosin Hydrochloride (Flomax) (01/18/25 18:00) Azithromycin 500mg/ 250ml (Zithromax 50 (01/18/25 10:00) Azithromycin 500mg/ 250ml (Zithromax 50 (01/18/25 00:15) Basic Metabolic Panel (01/18/25 04:00) Complete Blood Count (01/18/25 04:00) Oxygen Per Hour (01/18/25 00:04) Ondansetron Hcl (Zofran) (01/18/25 00:15) Cardiac Diet-2gna,Lofat,Lochol (01/18/25 Breakfast) Echo 2d Mode Cardiac Dop (01/18/25 00:04) Condition: Fair (01/18/25 00:04) Acetaminophen Tablet (Tylenol Tablet) (01/18/25 00:15) Bedrest With Bathroom Privileg (01/18/25 00:04) Stool Occult Blood (01/18/25 00:04) Vital Signs Date Time Temp Pulse Resp B/P (MAP) Pulse Ox O2 Delivery O2 Flow Rate FiO2 01/18/25 01:16 98.4 111 18 158/93 96 4.0 98.4 01/17/25 23:48 98.4 111 20 158/93 (114) 96 98.4 01/17/25 21:31 98.5 100 20 148/106 (120) 100 98.5 01/17/25 19:48 95 01/17/25 19:34 98.6 99 22 156/123 94 98.6 Laboratory Tests Test 01/17/25 22:09 White Blood Count 5.8 10^3/uL (4.4-10.8) Assessment/Plan Assessment/Plan Assessment Acute on chronic respiratory failure Congestive heart failure COPD Pulmonary hypertension Chronic anemia Plan Admit the patient to telemetry to the hospitalist Echocardiogram pending IV Lasix Azithromycin Med nebs Continue treatment per orders. Plan discussed with: Patient My Orders Orders - DIONNE MURRAY AGACNP Procedure Category Date Status Time Admit ADMIT 01/17/25 Transmitted 23:55 Nitroglycerin PHA 01/18/25 In Process Sublingual (Ntrostat 00:00 Morphine Sulfate PHA 01/18/25 In Process Injection 00:00 Stat Ekg For Chest SHERLEY 01/17/25 In Process Pain 23:55 Notify Md Of Changes SHERLEY 01/17/25 In Process From Base 23:55 Ocean Freight Manager For SHERLEY 01/17/25 In Process 24 Hours 23:55 Emergency Dysrhythmia SHERLEY 01/17/25 In Process Protocol 23:55 Rhythm Strips Once SHERLEY 01/17/25 In Process Every Shift 23:55 Oxygen By Nasal RT 01/17/25 Transmitted Cannula 23:55 Furosemide Injection PHA 01/18/25 In Process (Lasix Injection) 10:00 Aspirin Tablet PHA 01/18/25 In Process 10:00 Albuterol Medneb PHA 01/18/25 In Process (Ventolin Medneb) 00:15 Metoprolol Xl PHA 01/18/25 In Process Succinate (Toprol Xl) 10:00 Amlodipine Tablet PHA 01/18/25 In Process (Norvasc Tablet) 10:00 Ferrous Sulfate Tablet PHA 01/18/25 In Process 08:00 Atorvastatin (Lipitor) PHA 01/18/25 In Process 22:00 Pantoprazole Tablet PHA 01/18/25 In Process (Protonix Tablet) 06:00 Sildenafil Citrate PHA 01/18/25 Pending (Revatio) 08:00 Tamsulosin PHA 01/18/25 In Process Hydrochloride (Flomax) 18:00 Azithromycin 500mg/ PHA 01/18/25 Pending 250ml (Zithromax 50 10:00 Azithromycin 500mg/ PHA 01/18/25 In Process 250ml (Zithromax 50 00:15 Basic Metabolic Panel LAB 01/18/25 Logged 04:00 Complete Blood Count LAB 01/18/25 Logged 04:00 Oxygen Per Hour RT 01/18/25 Transmitted 00:04 Ondansetron Hcl PHA 01/18/25 In Process (Zofran) 00:15 Cardiac DIET 01/18/25 Transmitted Diet-2gna,Lofat,Lochol Breakfast Echo 2d Mode Cardiac US 11/17/25 Logged DOP 00:04 Condition: Fair SHERLEY 01/18/25 In Process 00:04 Acetaminophen Tablet PHA 01/18/25 In Process (Tylenol Tablet) 00:15 Bedrest With Bathroom SHERLEY 01/18/25 In Process Privileg 00:04 Stool Occult Blood LAB 01/18/25 Uncollected 00:04 Date of Service: Jan 17, 2025 Billing Provider: DIONNE MURRAY Common Visit Codes: [id number] INP/OBS CARE (HIGH) DIONNE MRURAY Jan 18, 2025 01:24
[2025-01-18] MEDS: FUROSEMIDE 20 MG/2 ML VIAL IV ONE (05:13)
[2025-01-18] MEDS: AZITHROMYCIN 500MG/250ML 250 ML IV ONE (05:13)
[2025-01-18] MEDS: PANTOPRAZOLE 40 MG TAB PO SCH (05:13)
[2025-01-18] MEDS: FERROUS SULFATE 325mg EC TAB PO SCH (05:14)
[2025-01-18] MEDS: BENAZEPRIL HCL 10 MG TAB PO SCH (06:08)
[2025-01-18] MEDS: ALBUTEROL SULF 2.5 MG/0.5ML(0.5%) NEB SOLN NEB PRN (06:19)
[2025-01-18 06:30] LABS: Anion Gap 9 (5-15); Carbon Dioxide 28 mmol/L (20-31); Chloride 106 mmol/L (98-107); Potassium 4.1 mmol/L (3.5-5.1); Sodium 143 mmol/L (136-145)
[2025-01-18 06:32] LABS: Calcium 8.7 mg/dL (8.7-10.4)
[2025-01-18 06:36] LABS: BUN/Creatinine Ratio 11.0 (10.0-20.0); Glucose 102 mg/dL (74-106)
[2025-01-18 06:40] LABS: Nucleated Red Blood Cells % 0.2 %
[2025-01-18 06:41] LABS: Blood Urea Nitrogen 8 mg/dL (9-23)
[2025-01-18 06:42] LABS: Hematocrit 31.0 % (41.0-53.0); Hemoglobin 8.4 g/dL (13.5-17.5); Mean Corpuscular Hemoglobin 20.0 pg (28.0-32.0); Mean Corpuscular Volume 73.4 fL (80.0-100.0)
[2025-01-18] MEDS: SILDENAFIL CITRATE 20 MG TAB PO SCH (09:43)
[2025-01-18] MEDS ORDERED: METOPROLOL SUCCINATE XL 50 MG TAB PO SCH (10:00)
[2025-01-18] MEDS ORDERED: FUROSEMIDE 20 MG/2 ML VIAL IV SCH (10:00)
--- NOTE | 2025-01-18 10:22 | DVHPN2 ---
Progress Note Date Seen: Jan 18, 2025 Medical Necessity Reason Pt with a Central, PICC or Fol: No Subjective Patient reports: No new complaints Review of Systems: HEENT:Normal, CVS:Normal, RESPIRATORY:Normal, GI:Normal, :Normal, MSK:Normal, NEURO:Normal Objective vital signs Vital Sign Date Time Temp Pulse Resp B/P (MAP) Pulse Ox O2 Delivery O2 Flow Rate FiO2 01/18/25 09:47 97.6 90 17 106/58 (74) 100 97.6 01/18/25 09:00 Non-Rebreather 10 N/A medications Current Medications Medications Dose Ordered Sig/Reji Route Start Time Stop Time Status Last Admin Dose Admin Morphine Sulfate 2 mg Q30M PRN IV 01/18/25 00:00 Furosemide 20 mg DAILY IV 01/18/25 10:00 Aspirin 81 mg DAILY PO 01/18/25 10:00 01/18/25 05:13 81 MG Albuterol 2.5 mg Q6HPRN PRN NEB 01/18/25 00:15 01/18/25 06:19 2.5 MG Metoprolol Succinate 50 mg DAILY PO 01/18/25 10:00 Cancel Amlodipine Besylate 5 mg DAILY PO 01/18/25 10:00 01/18/25 05:14 5 MG Ferrous Sulfate 325 mg BIDWM PO 01/18/25 08:00 01/18/25 05:14 325 MG Atorvastatin Calcium 20 mg HS PO 01/18/25 22:00 Pantoprazole Sodium 40 mg DAILY@0600 PO 01/18/25 06:00 01/18/25 05:13 40 MG Sildenafil Citrate 20 mg TID@08,14,20 PO 01/18/25 08:00 01/18/25 09:43 20 MG Tamsulosin HCl 0.4 mg QPM PO 01/18/25 18:00 Azithromycin 250 ml @ 125 mls/hr Q24H IV 01/19/25 10:00 Ondansetron HCl 4 mg Q4HP PRN IV 01/18/25 00:15 Acetaminophen 650 mg Q6HP PRN PO 01/18/25 00:15 Benazepril HCl 20 mg DAILY PO 01/18/25 10:00 01/18/25 06:08 20 MG Examination: GENERAL:Normal, HEENT:Normal, NECK:Normal, LUNGS:Normal, LUNGS:Abnormal (on oxygen), CVS:Normal, ABDOMEN:Normal, MSK:Normal, SKIN:Normal, NEURO:Normal, :Normal laboratory and microbiology Laboratory Tests 01/18/25 05:20 Test 01/18/25 05:20 Range/Units Serum Glucose 102 74-106 mg/dL Problem List/Assessment/Plan Problem List/Assessment/Plan #1 acute resp failure: cont oxygen #2 acute on chronic systolic/diastolic heart failure: lasix #3 hypertensive emergency: monitor bp #4 copd #5 pulmonary htn: cont meds #6 obesity' #7 h/o hep C #8 anemia #9 bph #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 advance care planning- full code- time spent 19 mins Plan discussed with: Patient, Spouse My Orders My Orders Orders - DIONNE BENDER MD Procedure Category Date Status Time Furosemide Injection PHA 01/18/25 Transmitted (Lasix Injection) 22:00 Urinalysis LAB 01/18/25 Transmitted 10:15 Complete Blood Count LAB 01/19/25 Verified 06:00 Comprehensive LAB 01/19/25 Verified Metabolic Panel 06:00 PTPTT LAB 01/19/25 Verified 04:00 Critical Care Time (mins): 37 (critical care time 37 mins excluding procedures) Date of Service: Jan 18, 2025 Billing Provider: DIONNE BENDER MD Common Visit Codes: [id number] CARE 30-74 MIN DIONNE BENDER MD Jan 18, 2025 10:22
[2025-01-18 16:17] LABS: Urine Protein, UAD 1+ (Negative)
[2025-01-18] MEDS: ACETAMINOPHEN 325 MG TAB PO PRN (17:47)
[2025-01-18] MEDS: FUROSEMIDE 20 MG/2 ML VIAL IV SCH (18:29)
[2025-01-18] MEDS: TAMSULOSIN HYDROCHLORIDE 0.4 MG CAP PO SCH (18:29)
--- NOTE | 2025-01-18 21:33 | ECG ---
[facility] Test Date: 2025-01-17 Test Time: 19:48:43 Pat Name: KATHRYN AVERY Department: [facility] ED Patient ID: [facility]-[id number] Room: 0288T B Gender: M [employer]: : 1950 Requested By: KATHLEEN CABA Order Number: [id number] Reading MD: Pablo Weaver Measurements Intervals Dingess Rate: 95 P: 74 AK: 195 QRS: 130 QRSD: 102 T: 86 QT: 394 QTc: 496 Interpretive Statements Sinus rhythm Right axis deviation RSR' in V1 or V2, probably normal variant Repol abnrm suggests ischemia, anterolateral Electronically Signed On 01-19-2025 17:57:00 PST by Pablo Weaver Please click the below link to view image of tracing.
[2025-01-18] MEDS: ATORVASTATIN 20 MG TAB PO SCH (22:26)
[2025-01-19] VITALS (13 sets, daily range): BP systolic 109–144; BP diastolic 55–85; PULSE 79–106; RESP 16–19; TEMP 97.9–99.2; O2SAT 94–100
[2025-01-19 07:21] LABS: Hemoglobin 7.9 g/dL (13.5-17.5)
[2025-01-19 07:25] LABS: Hematocrit 28.4 % (41.0-53.0); Mean Corpuscular Hemoglobin 19.9 pg (28.0-32.0); Mean Corpuscular Volume 71.9 fL (80.0-100.0); Nucleated Red Blood Cells % 0.3 %
[2025-01-19 07:33] LABS: INR 1.08 (0.9-1.15); Partial Thromboplastin Time 27.9 SEC (24.5-34.5); Prothrombin Time 11.4 sec (9.3-11.8)
[2025-01-19 07:46] LABS: Alanine Aminotransferase 18 U/L (7-40); Albumin 3.8 g/dL (3.2-4.8); Alkaline Phosphatase 100 U/L (46-116); Anion Gap 7 (5-15); BUN/Creatinine Ratio 11.7 (10.0-20.0); Bilirubin, Total 0.2 mg/dL (0.2-1.0); Blood Urea Nitrogen 11 mg/dL (9-23); Calcium 8.7 mg/dL (8.7-10.4); Carbon Dioxide 34 mmol/L (20-31); Chloride 102 mmol/L (98-107); Glucose 92 mg/dL (74-106); Potassium 4.3 mmol/L (3.5-5.1); Sodium 143 mmol/L (136-145); Total Protein 7.4 g/dL (5.7-8.2)
[2025-01-19 09:44] LABS: Anisocytosis Slight
[2025-01-19 09:46] LABS: Ovalocytes FEW
[2025-01-19] MEDS: AZITHROMYCIN 500MG/250ML 250 ML IV SCH (09:52)
--- NOTE | 2025-01-19 11:23 | DVHPN2 ---
Progress Note Date Seen: Jan 19, 2025 Medical Necessity Reason Pt with a Central, PICC or Fol: No Subjective Patient reports: No new complaints Review of Systems: HEENT:Normal, CVS:Normal, RESPIRATORY:Normal, GI:Normal, :Normal, MSK:Normal, NEURO:Normal Objective vital signs Vital Sign Date Time Temp Pulse Resp B/P (MAP) Pulse Ox O2 Delivery O2 Flow Rate FiO2 01/19/25 09:30 99.2 105 18 127/75 (92) 100 99.2 01/19/25 08:00 Oxymizer 8 N/A Total Intake and Output 01/18/25 01/18/25 01/19/25 15:00 23:00 07:00 Intake Total 0 ml Output Total 600 ml Balance -600 ml medications Current Medications Medications Dose Ordered Sig/Reji Route Start Time Stop Time Status Last Admin Dose Admin Morphine Sulfate 2 mg Q30M PRN IV 01/18/25 00:00 Aspirin 81 mg DAILY PO 01/18/25 10:00 01/18/25 05:13 81 MG Albuterol 2.5 mg Q6HPRN PRN NEB 01/18/25 00:15 01/18/25 14:41 2.5 MG Metoprolol Succinate 50 mg DAILY PO 01/18/25 10:00 Cancel Amlodipine Besylate 5 mg DAILY PO 01/18/25 10:00 01/18/25 05:14 5 MG Ferrous Sulfate 325 mg BIDWM PO 01/18/25 08:00 01/19/25 09:51 325 MG Atorvastatin Calcium 20 mg HS PO 01/18/25 22:00 01/18/25 22:26 20 MG Pantoprazole Sodium 40 mg DAILY@0600 PO 01/18/25 06:00 01/19/25 05:24 40 MG Sildenafil Citrate 20 mg TID@08,14,20 PO 01/18/25 08:00 01/18/25 20:33 20 MG Tamsulosin HCl 0.4 mg QPM PO 01/18/25 18:00 01/18/25 18:29 0.4 MG Azithromycin 250 ml @ 125 mls/hr Q24H IV 01/19/25 10:00 01/19/25 09:52 125 MLS/HR Ondansetron HCl 4 mg Q4HP PRN IV 01/18/25 00:15 Acetaminophen 650 mg Q6HP PRN PO 01/18/25 00:15 01/19/25 09:50 650 MG Benazepril HCl 20 mg DAILY PO 01/18/25 10:00 01/18/25 06:08 20 MG Furosemide 20 mg BIDD IV 01/18/25 18:00 01/19/25 05:25 20 MG Examination: GENERAL:Normal, HEENT:Normal, NECK:Normal, LUNGS:Normal, LUNGS:Abnormal (oxygen), CVS:Normal, ABDOMEN:Normal, MSK:Normal, MSK:Abnormal (edema+), SKIN:Normal, NEURO:Normal, :Normal laboratory and microbiology Laboratory Tests 01/19/25 04:46 Test 01/19/25 04:46 Range/Units Serum Glucose 92 74-106 mg/dL Problem List/Assessment/Plan Problem List/Assessment/Plan #1 acute resp failure: cont oxygen #2 acute on chronic systolic/diastolic heart failure: lasix #3 hypertensive emergency: monitor bp #4 copd #5 pulmonary htn: cont meds #6 obesity' #7 h/o hep C #8 anemia: transfuse #9 bph #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 advance care planning- full code- time spent 19 mins Plan discussed with: Patient, Spouse My Orders My Orders Orders - DIONNE BENDER MD Procedure Category Date Status Time Bipap/Cpap For Sleep RT 01/19/25 Logged Apnea 11:17 Packedcell-Noactive BBK 01/19/25 Logged Bleeding 11:17 Type And Screen BBK 01/19/25 Logged 11:17 Administer Blood SHERLEY 01/19/25 In Process Products 11:17 Iron Panel LAB 01/19/25 Logged 11:17 Furosemide Injection PHA 01/19/25 Logged (Lasix Injection) 11:30 Basic Metabolic Panel LAB 01/20/25 Verified 06:00 Complete Blood Count LAB 01/20/25 Verified 06:00 Chest Portable XY 01/20/25 Logged 06:00 Date of Service: Jan 19, 2025 Billing Provider: DIONNE BENDER MD Common Visit Codes: [id number] INP/OBS CARE(HIGH) DIONNE BENDER MD Jan 19, 2025 11:23
--- NOTE | 2025-01-19 12:09 | DVHSR ---
APPROVED REPORT EXAM: Two-dimensional and M-mode echocardiogram with Doppler and color Doppler. Blood Pressure: 136/94 mmHg INDICATION ef RISK FACTORS Height: 5'8, Weight: 201 DIMENSIONS LVDd 4.4 (3.8-5.7cm) LA (2D) 3.8 (1.9-4.0cm) Aortic Root 3.5 (2.0-3.7cm) LVDs 3.3 (2.5-4.0cm) LA (MM) (1.9-4.0cm) Aortic Cusp Exc 1.3 (1.5-2.0cm) EF (%) 48.0 (55-70%) Rt. Atrium 6.9 (1.9-4.0cm) Asc. Aorta cm IVSd 0.8 (0.7-1.1cm) RV (D) 6.5 (1.8-2.4cm) PWd 0.9 (0.7-1.1cm) Mitral Valve Mitral Mitral Stenosis E wave 0.77m/s MV Mean GR. mmHg A wave 1.09m/s MV Peak GR. mmHg E/A ratio 0.7 2D MVA cm2 DECEL Time 97ms PRESS 1/2 Time ms Aortic Valve Aortic Valve Aortic Stenosis V1 0.97m/s AO Mean GR. 8mmHg V2 1.84m/s AO Peak GR. 14mmHg LVOT Diameter 2.3 (1.8-2.4cm) Doppler MARTY 2.19cm2 Tricuspid Valve TR Velocity 3.75m/s RVSP 87mmHg Other Information Quality : Limited Rhythm : Technically limited study due to patient position.pt breathing shallow. Conclusion lvef 55% severe RV enlargement and dysfunction flattened IV septum c/w RV failure/ overload severe pulm htn, pasp >75 mmhg, could be worse mild to moderate tricuspid regurg
[2025-01-19 12:23] LABS: Iron 102.0 ug/dL (65-175)
[2025-01-19 12:26] LABS: Total Iron Binding Capacity 336.0 ug/dL (250-425)
[2025-01-20] VITALS (12 sets, daily range): BP systolic 121–138; BP diastolic 65–83; PULSE 92–112; RESP 16–22; TEMP 97.8–99.6; O2SAT 90–100
[2025-01-20] MEDS: FUROSEMIDE 20 MG/2 ML VIAL IV ONE (02:26)
--- NOTE | 2025-01-20 05:27 | DVH ---
CHEST RADIOGRAPH Indication: chf Technique: Single frontal view of the chest was obtained Comparison: Chest radiograph dated 01/17/2025. FINDINGS: Lines and Tubes: None Lungs: Decreased bilateral airspace opacities. Bilateral interstitial prominence is slightly decreased. Julio B lines noted in the left lower lung zone. Pleura: No effusion. No pneumothorax. Cardiomediastinal contours: Unremarkable Bones: No acute osseous abnormality. IMPRESSION: 1. Decreased pulmonary edema.
[2025-01-20 05:42] LABS: Hematocrit 28.8 % (41.0-53.0); Hemoglobin 8.4 g/dL (13.5-17.5); Mean Corpuscular Hemoglobin 20.6 pg (28.0-32.0); Mean Corpuscular Volume 71.1 fL (80.0-100.0); Nucleated Red Blood Cells % 0.0 %
[2025-01-20 05:50] LABS: Anion Gap 6 (5-15); Potassium 4.1 mmol/L (3.5-5.1); Sodium 140 mmol/L (136-145)
[2025-01-20 05:51] LABS: Calcium 8.9 mg/dL (8.7-10.4)
[2025-01-20 05:56] LABS: BUN/Creatinine Ratio 14.1 (10.0-20.0); Blood Urea Nitrogen 12 mg/dL (9-23); Glucose 98 mg/dL (74-106)
[2025-01-20 05:57] LABS: Carbon Dioxide 36 mmol/L (20-31); Chloride 98 mmol/L (98-107)
--- NOTE | 2025-01-20 11:05 | DVHPN2 ---
Progress Note Date Seen: Jan 20, 2025 Medical Necessity Reason Pt with a Central, PICC or Fol: No Subjective Patient reports: No new complaints Review of Systems: HEENT:Normal, CVS:Normal, RESPIRATORY:Normal, GI:Normal, :Normal, MSK:Normal, NEURO:Normal Objective vital signs Vital Sign Date Time Temp Pulse Resp B/P (MAP) Pulse Ox O2 Delivery O2 Flow Rate FiO2 01/20/25 09:15 99.3 105 16 135/83 (100) 96 99.3 01/19/25 21:02 Facial BiPAP Mask 40 01/19/25 20:00 5 Total Intake and Output 01/19/25 01/19/25 01/20/25 15:00 23:00 07:00 Intake Total 500 ml 1100 ml Output Total 200 ml Balance 500 ml 900 ml medications Current Medications Medications Dose Ordered Sig/Reji Route Start Time Stop Time Status Last Admin Dose Admin Morphine Sulfate 2 mg Q30M PRN IV 01/18/25 00:00 Aspirin 81 mg DAILY PO 01/18/25 10:00 01/18/25 05:13 81 MG Albuterol 2.5 mg Q6HPRN PRN NEB 01/18/25 00:15 01/18/25 14:41 2.5 MG Metoprolol Succinate 50 mg DAILY PO 01/18/25 10:00 Cancel Amlodipine Besylate 5 mg DAILY PO 01/18/25 10:00 01/20/25 08:55 5 MG Ferrous Sulfate 325 mg BIDWM PO 01/18/25 08:00 01/20/25 08:54 325 MG Atorvastatin Calcium 20 mg HS PO 01/18/25 22:00 01/19/25 21:31 20 MG Pantoprazole Sodium 40 mg DAILY@0600 PO 01/18/25 06:00 01/20/25 05:17 40 MG Sildenafil Citrate 20 mg TID@08,14,20 PO 01/18/25 08:00 01/20/25 08:53 20 MG Tamsulosin HCl 0.4 mg QPM PO 01/18/25 18:00 01/19/25 18:34 0.4 MG Ondansetron HCl 4 mg Q4HP PRN IV 01/18/25 00:15 Acetaminophen 650 mg Q6HP PRN PO 01/18/25 00:15 01/20/25 08:53 650 MG Benazepril HCl 20 mg DAILY PO 01/18/25 10:00 01/20/25 08:54 20 MG Furosemide 20 mg BIDD IV 01/18/25 18:00 01/20/25 05:17 20 MG Examination: GENERAL:Normal, HEENT:Normal, NECK:Normal, LUNGS:Normal, LUNGS:Abnormal (on oxygen), CVS:Normal, ABDOMEN:Normal, MSK:Normal, SKIN:Normal, NEURO:Normal, :Normal laboratory and microbiology Laboratory Tests 01/20/25 04:59 Test 01/20/25 04:59 Range/Units Serum Glucose 98 74-106 mg/dL Problem List/Assessment/Plan Problem List/Assessment/Plan #1 acute resp failure: cont oxygen #2 acute on chronic systolic/diastolic heart failure: lasix #3 hypertensive emergency: monitor bp #4 copd #5 pulmonary htn: cont meds #6 obesity' #7 h/o hep C #8 anemia: transfuse #9 bph #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
[2025-01-20] MEDS ORDERED: BACLOFEN 10 MG TAB PO PRN (11:15)
[2025-01-20] MEDS ORDERED: ACETAMINOPHEN 325 MG TAB PO PRN (17:00)
[2025-01-20] MEDS ORDERED: ACET650T12 PO (19:21)
[2025-01-21] VITALS (8 sets, daily range): BP systolic 112–148; BP diastolic 71–84; PULSE 78–105; RESP 14–20; TEMP 97.7–98.8; O2SAT 90–100
--- NOTE | 2025-01-21 15:22 | DVHDS2 ---
Discharge Summary Date of Admission Jan 17, 2025 at 23:55 Date of Discharge: Jan 21, 2025 Labs/Diagnostic Data: Laboratory Results Test 01/20/25 04:59 01/19/25 11:38 01/19/25 10:50 01/19/25 04:46 White Blood Count 6.4 10^3/uL (4.4-10.8) Red Blood Count 4.06 10^6/uL (4.5-5.90) Hemoglobin 8.4 g/dL (13.5-17.5) Hematocrit 28.8 % (41.0-53.0) Mean Corpuscular Volume 71.1 fL (80.0-100.0) Mean Corpuscular Hemoglobin 20.6 pg (28.0-32.0) Mean Corpuscular Hemoglobin Concent 29.0 g/dL (32.0-36.0) Red Cell Distribution Width 23.7 % (11.8-14.3) Platelet Count 248 10^3/uL (140-450) Mean Platelet Volume 8.9 fL (6.9-10.8) Neutrophils (%) (Auto) 70.1 % (37.0-80.0) Lymphocytes (%) (Auto) 18.4 % (10.0-50.0) Monocytes (%) (Auto) 9.0 % (0.0-12.0) Eosinophils (%) (Auto) 2.0 % (0.0-7.0) Basophils (%) (Auto) 0.5 % (0.0-2.0) Neutrophils # (Auto) 4.5 10 ^3/uL (1.6-8.6) Lymphocytes # (Auto) 1.2 10 ^3/uL (0.4-5.4) Monocytes # (Auto) 0.6 10 ^3/uL (0-1.3) Eosinophils # (Auto) 0.1 10 ^3/uL (0-0.8) Basophils # (Auto) 0 10 ^3/uL (0-0.2) Nucleated Red Blood Cells 0.0 % Sodium Level 140 mmol/L (136-145) Potassium Level 4.1 mmol/L (3.5-5.1) Chloride Level 98 mmol/L (98-107) Carbon Dioxide Level 36 mmol/L (20-31) Anion Gap 6 (5-15) Blood Urea Nitrogen 12 mg/dL (9-23) Creatinine 0.85 mg/dL (0.700-1.30) Glomerular Filtration Rate Calc 92 mL/min (>90) BUN/Creatinine Ratio 14.1 (10.0-20.0) Serum Glucose 98 mg/dL (74-106) Calcium Level 8.9 mg/dL (8.7-10.4) Iron Level 102 ug/dL (65-175) Total Iron Binding Capacity 336 ug/dL (250-425) Percent Iron Saturation 30.4 % (20-55) Stool Occult Blood Negative (Negative) Stool Occult Blood Sample #3 (Negative) Platelet Estimate Adequate Large Platelets Few Hypochromasia (manual) Marked Poikilocytosis (manual) Slight Anisocytosis (manual) Slight Microcytosis Moderate Target Cells Few Ovalocytes Few Schistocytes Few Prothrombin Time 11.4 sec (9.3-11.8) Prothrombin Time INR 1.08 (0.9-1.15) Activated Partial Thromboplast Time 27.9 SEC (24.5-34.5) Total Bilirubin 0.2 mg/dL (0.2-1.0) Aspartate Amino Transferase (AST) 20 U/L (13-40) Alanine Aminotransferase (ALT) 18 U/L (7-40) Alkaline Phosphatase 100 U/L (46-116) Total Protein 7.4 g/dL (5.7-8.2) Albumin 3.8 g/dL (3.2-4.8) Test 01/18/25 15:48 01/17/25 22:09 01/17/25 22:00 Urine Color Light-yellow (Yellow) Urine Clarity Clear (Clear) Urine pH 5.5 (5.0-9.0) Urine Specific Falkner 1.015 (1.001-1.035) Urine Protein 1+ (Negative) Urine Ketones Negative (Negative) Urine Blood Negative /uL (Negative) Urine Nitrite Negative (Negative) Urine Bilirubin Negative (Negative) Urine Urobilinogen Normal mg/dL (Negative) Urine Leukocyte Esterase Negative /uL (Negative) Urine RBC <1 /hpf (0 - 3) Urine Microscopic WBC 1 /HPF (0-3) Urine Squamous Epithelial Cells None seen /hpf (<5) Urine Bacteria None seen /hpf (None Seen) Urine Hyaline Casts Many /lpf (0 - 2) Urine Mucus Few (None Seen) Urine Glucose Normal mg/dL (Normal) Differential Total Cells Counted 100.0 (100) Neutrophils % (Manual) 69 (37.0-80.0) Band Neutrophils % (Manual) 1 Lymphocytes % (Manual) 22 (10.0-50.0) Monocytes % (Manual) 6 (0-12) Eosinophils % (Manual) 1 (0-7) Basophils % (Manual) 0 (0.0-2.0) Metamyelocytes % (manual) 0 Myelocytes % (Manual) 1 Promyelocytes % (Manual) 0 Blast Cells % (Manual) 0 Reactive Lymphocytes 0 Troponin I High Sensitivity 6 ng/L (</=54) B-Type Natriuretic Peptide 434.90 pg/mL (0-100) Blood Gas Specimen Type Arterial Blood Gas Sample Site Left radial Blood Gas Patient Temperature 37.0 Arterial Blood Date Drawn [id number] Arterial Blood pH 7.303 (7.350-7.450) Arterial Blood Partial Pressure CO2 51.6 mmHg (35.0-48.0) Arterial Blood Partial Pressure O2 156.6 mmHg (83.0-108.0) Arterial Blood HCO3 25.0 mmol/L (21.0-28.0) Arterial Blood Oxygen Saturation 99.4 % (94.0-98.0) Arterial Blood Base Excess -1.6 mmol/L (-2.0-3.0) Arterial Blood Oxyhemoglobin 96.9 % (94.0-98.0) Arterial Blood Carboxyhemoglobin 1.9 % (0.5-1.5) Arterial Blood Methemoglobin 0.6 % (0.0-1.5) Jose Luis Test Yes Blood Gas Total Hemoglobin 9.30 g/dL (13.5-17.5) Blood Gas Liter Flow 4.00 Blood Gas Modality Nasal cannula FiO2 % 36.0 Other Laboratory Tests 01/20/25 04:59 Brief Hx & Hospital Course: SEE DICTATED NOTE Condition at Discharge: Fair Final Diagnosis/Problems List CHF Discharge Disposition: Home Discharge Instruct/Medications Diet: Cardiac 2g Na,low cholest Activity: No Restrictions, As Tolerated Follow Up/Referral: FU WITH PCP IN 1 WK Medications: RESUME HOME MEDS EXCEPT LASIX DOSE Scheduled Amlodipine Besylate-Benazepril (Amlodipine Besylate/Benaz), 1 CAP PO DAILY, (Reported) Aspirin (Aspirin), 81 MG PO DAILY, (Reported) Ferrous Sulfate (Iron), 325 MG PO BID Ligzygbcfeg-Lhlhoxaavlmt-Xddfp (Trelegy Ellipta 100-62.5-25 Mcg/INH), 1 PUFF INH DAILY, (Reported) Lovastatin (Lovastatin), 1 TAB PO DAILY, (Reported) Metoprolol Succinate (Metoprolol Succinate Er), 1 TAB PO DAILY, (Reported) Nitroglycerin (Ntrostat Sublingual), 0.4 MG SL PRN, (Reported) Pantoprazole Sodium Sesquihydr (Pantoprazole Sodium), 40 MG PO BID Sildenafil Citrate (Viagra), 1 TAB PO DAILYP, (Reported) Sucralfate (Carafate), 1 GM OR QID Tamsulosin Hcl (Tamsulosin Hcl), 1 CAP PO DAILY, (Reported) Scheduled PRN Albuterol Sulfate (Albuterol Sulfate Hfa), 2 PUFF IN Q4HP PRN for SHORTNESS OF BREATH, (Reported) Baclofen (Baclofen), 10 MG PO BIDPRN PRN for FOR MUSCLE SPASM, (Reported) Naproxen (Naprosyn Tablet), 1 TAB PO BID PRN for MILD PAIN (1-3 PAIN SCALE), (Reported) Miscellaneous Medications Acetaminophen (Acetaminophen Er), 650 MG PO, (Reported) Discharge Statement: "Patient was advised to return to the ER or call 911 if any headaches, dizziness, shortness of breath, chest pain, abdominal pain, bleeding, fevers, or worsening of medical condition. Patient was counseled about treatment plan, medications, possible side effects, patientverbalized understanding. All questions were answered to the best of my ability. This discharge took greater then 30 minutes in planning, reviewing documentation, counseling the patient, and discussing with other team members." ASSESSMENT ASSESSMENT Assessment CHF Date of Service: Jan 21, 2025 Billing Provider: DIONNE BENDER MD Common Visit Codes: [id number] DISCH DAY >30min DIONNE BENDER MD Jan 21, 2025 15:22
--- NOTE | 2025-01-21 16:54 | DVHDS ---
DATE OF DISCHARGE: 01/21/2025 HISTORY OF PRESENT ILLNESS: The patient is a 74-year-old gentleman who was admitted with history of increasing shortness of breath and lower extremity swelling and has a history of COPD, pulmonary hypertension, congestive heart failure, respiratory failure, BPH. HOSPITAL COURSE: The patient was initially on up to 7 liters oxygen. He is now improved to about 2-3 liters oxygen. He was anemic for which he was transfused blood. The patient was diuresed with intravenous Lasix. BNP was elevated. Echocardiogram done showed severe pulmonary hypertension with PA systolic pressure greater than 75 with severe RV enlargement. The patient is now improved in his symptoms and will be going home. He will be discharged to resume his home medications as well as to be on Lasix 20 mg daily with potassium chloride 10 mEq p.o. daily. He will follow up with his primary in 1 week. FINAL DIAGNOSES: Therefore: * Sobng-cg-ohbikhn respiratory failure. * Severe pulmonary hypertension. * Eoxtp-du-yvahvmz systolic/diastolic heart failure. * COPD. * Hypertensive emergency. * Obesity. * History of hepatitis C. * Anemia, status post transfusion. * BPH. * Left eye prosthesis. Time spent on discharge planning and review of plan with the patient, , and review of labs and treatment plan was 41 minutes. MD ELIZABETH Koehler/KERMIT/ALEXANDRE TID: [id number] RECEIPT: [id number]
== END 2025-01-21 16:48 | disposition home or self-care (01) | DRG 291 ==
LOC: ER 19:27 → OVERFLOW 23:55 → TELE-WESTW 01-18 21:12
PROVIDERS: ADMIT Internal Medicine; ATTEND Internal Medicine
PROC: 5A09357 Assistance with Respiratory Ventilation, Less than 24 Consecutive Hours, Continuous Positive Airway Pressure (ICD-10-PCS; principal; 2025-01-19)
PROC: 5A09357 Assistance with Respiratory Ventilation, Less than 24 Consecutive Hours, Continuous Positive Airway Pressure (ICD-10-PCS; 2025-01-19)
DX: I11.0 Hypertensive heart disease with heart failure (principal); I50.43 Acute on chronic combined systolic (congestive) and diastolic (congestive) heart failure; J96.21 Acute and chronic respiratory failure with hypoxia; I16.1 Hypertensive emergency; I27.20 Pulmonary hypertension, unspecified; D64.9 Anemia, unspecified; E66.9 Obesity, unspecified; J44.89 Other specified chronic obstructive pulmonary disease; N40.0 Benign prostatic hyperplasia without lower urinary tract symptoms; Z79.899 Other long term (current) drug therapy; Z97.0 Presence of artificial eye; Z68.24 Body mass index [BMI] 24.0-24.9, adult
CPT/HCPCS: 36415; 36600; 71045; 80048; 80053; 81001; 82270; 82805; 83540; 83550; 83880; 84484; 85007; 85025; 85027; 85610; 85730; 86850; 86900; 86901; 86920; 93005; 93306; 94640; 94660; 96374; 97110; 97116; 97163; 97530; 99291; G0378